=== PATIENT | female | born 1935 | race Caucasian/White ===

== ENCOUNTER 2020-01-17 17:02 | Inpatient (IN) ==
[2020-01-17] MEDS ORDERED: Isovue-370 500 ML BOTTLE IVP ONE (19:10)
[2020-01-17 19:48] LABS: Basophils % 0.5 %; Mean Corpuscular HGB Conc 31.4 g/dL (31.6-35.5); Red Cell Distribution Width 13.9 % (11.5-14.5)
[2020-01-17 19:50] LABS: Eosinophils # 0.1 K/mcL (0.0-0.6); Hematocrit 42.3 % (35.3-44.9); Hemoglobin 13.3 g/dL (11.5-15.4); Immature Granulocytes % 0.2 % (0-4); Immature Platelets 6.1 % (1.1-6.1); Lymphocytes # 1.5 K/mcL (0.6-4.6); Mean Corpuscular Hemoglobin 29.1 pg (28.0-33.3); Mean Corpuscular Volume 92.6 fL (83.0-100.0); Mean Platelet Volume 11.1 fL (9.4-12.4); Monocytes # 0.6 K/mcL (0.0-1.3); Monocytes % 8.7 %; Neutrophils # 4.3 K/mcL (1.6-8.9); Platelet Count 115 K/mcL (140-400); Red Blood Count 4.57 M/mcL (3.82-4.97); Segmented Neutrophils % 65.6 %; White Blood Count 6.6 K/mcL (4.3-11.1)
[2020-01-17 20:12] LABS: Calcium 9.3 mg/dL (8.6-10.3); Magnesium 1.8 mg/dL (1.6-2.6); Potassium 3.4 mEq/L (3.5-5.1); Troponin I 0.04 ng/mL (< 0.04)
[2020-01-17] MEDS: Aspirin 325 MG TABLET PO SCH (22:59)
[2020-01-18] MEDS ORDERED: Naloxone 0.4 MG/ML INJ IVP PRN (00:45)
[2020-01-18] MEDS ORDERED: Perflutren Lipid Microsphere 1.3 ML in 0.9 % Sodium Chloride 8.7 ML IVP PRN (00:48)
[2020-01-18] MEDS: *HR* Heparin 5,000 UNIT/ML VIAL SQ SCH ×4 (02:08→21:32)
[2020-01-18] MEDS ORDERED: Ipratropium/Albuterol Neb 3 ML IH PRN (04:00)
[2020-01-18 04:04] LABS: Hematocrit 38.3 % (35.3-44.9); Hemoglobin 12.2 g/dL (11.5-15.4); Immature Platelets 4.7 % (1.1-6.1); Mean Corpuscular HGB Conc 31.9 g/dL (31.6-35.5); Mean Corpuscular Hemoglobin 29.5 pg (28.0-33.3); Mean Corpuscular Volume 92.7 fL (83.0-100.0); Mean Platelet Volume 10.9 fL (9.4-12.4); Red Blood Count 4.13 M/mcL (3.82-4.97); Red Cell Distribution Width 13.8 % (11.5-14.5); White Blood Count 6.2 K/mcL (4.3-11.1)
[2020-01-18 04:09] LABS: INR 1.2; Prothrombin Time 14.3 Seconds (9.4-12.1)
[2020-01-18 04:12] LABS: Activated Partial Thrombo Time 29.8 Seconds (26.0-36.0)
[2020-01-18 04:20] LABS: Albumin 3.7 g/dL (3.5-5.7); Albumin/Globulin Ratio 1.8 (1.1-2.2); Bilirubin,Total 1.1 mg/dL (0.3-1.0); Calcium 8.5 mg/dL (8.6-10.3); Globulin 2.1 g/dL (2.4-3.5); Potassium 3.3 mEq/L (3.5-5.1); Total Protein 5.8 g/dL (6.4-8.9); Troponin I 0.03 ng/mL (< 0.04)
[2020-01-18 04:33] LABS: Thyroid Stimulating Hormone 1.823 mcIU/mL (0.340-5.600)
[2020-01-18] MEDS: Furosemide 40 MG/4 ML VIAL IVP SCH (09:21)
[2020-01-18] MEDS: Aspirin 325 MG TABLET PO SCH (09:21)
[2020-01-18] MEDS: lisinopriL 20 MG TABLET PO SCH (20:19)
[2020-01-19 06:22] LABS: Hemoglobin 13.1 g/dL (11.5-15.4); Mean Platelet Volume 11.1 fL (9.4-12.4); Red Blood Count 4.36 M/mcL (3.82-4.97); Red Cell Distribution Width 13.9 % (11.5-14.5); White Blood Count 3.9 K/mcL (4.3-11.1)
[2020-01-19 06:24] LABS: Platelet Count 98 K/mcL (140-400)
[2020-01-19] MEDS: *HR* Heparin 5,000 UNIT/ML VIAL SQ SCH ×3 (06:26→21:00)
[2020-01-19 06:36] LABS: BUN/Creatinine Ratio 25 (6-26); Blood Urea Nitrogen 24 mg/dL (8-23); Carbon Dioxide 27 mEq/L (23-29); Chloride 104 mEq/L (98-107); Glucose 108 mg/dL (70-105); Osmolality,Calculated 295 (280-300); Potassium 3.9 mEq/L (3.5-5.1); Sodium 140 mEq/L (136-145); eGFR For African Americans > 60 (> 60); eGFR For Non-African Americans 56 (> 60)
[2020-01-19] MEDS: Furosemide 40 MG/4 ML VIAL IVP SCH (08:27)
[2020-01-19] MEDS: lisinopriL 20 MG TABLET PO SCH ×2 (08:28→21:00)
[2020-01-19] MEDS: Aspirin Enteric Coated 81 MG Tablet PO SCH (08:29)
[2020-01-19] MEDS ORDERED: Metoprolol XL (24 HR) Succ 25 MG TAB.ER.24H PO SCH (09:00)
[2020-01-19] MEDS ORDERED: *HR* Heparin 5,000 UNIT/ML VIAL IVP PRN ×2 (23:32)
[2020-01-19] MEDS ORDERED: *HR* Heparin 5,000 UNIT/ML VIAL IVP ONE (23:32)
[2020-01-19] MEDS ORDERED: Heparin 25,000UNIT/250ML 1/2NS 25,000 UNIT/250 ML IV.SOLN IVC SCH (23:45)
[2020-01-20 06:52] LABS: Red Cell Distribution Width 13.8 % (11.5-14.5)
[2020-01-20 06:54] LABS: Hematocrit 41.7 % (35.3-44.9); Hemoglobin 13.3 g/dL (11.5-15.4); Immature Platelets 4.7 % (1.1-6.1); Mean Corpuscular HGB Conc 31.9 g/dL (31.6-35.5); Mean Corpuscular Hemoglobin 29.5 pg (28.0-33.3); Mean Corpuscular Volume 92.5 fL (83.0-100.0); Mean Platelet Volume 10.6 fL (9.4-12.4); Red Blood Count 4.51 M/mcL (3.82-4.97); White Blood Count 5.2 K/mcL (4.3-11.1)
[2020-01-20 07:23] LABS: Potassium 3.4 mEq/L (3.5-5.1)
[2020-01-20] MEDS: Furosemide 40 MG/4 ML VIAL IVP SCH (09:09)
[2020-01-20] MEDS: Cholecalciferol (D-3) 1,000 UNIT (25MCG) TABLET PO SCH (09:11)
[2020-01-20] MEDS: lisinopriL 20 MG TABLET PO SCH (09:11)
[2020-01-20] MEDS: Aspirin Enteric Coated 81 MG Tablet PO SCH (09:11)
[2020-01-20] MEDS ORDERED: 0.9 % Sodium Chloride 2,000 ML ONE (11:05)
[2020-01-20] MEDS ORDERED: *HR* Heparin 10,000 UNIT/10 ML VIAL ONE (11:05)
[2020-01-20] MEDS ORDERED: Heparin 1,000 UNITS/500 mL 500 ML ONE (11:05)
[2020-01-20] MEDS ORDERED: ISOVUE-370 200 ML INFUS..BTL ONE (11:05)
[2020-01-20] MEDS ORDERED: Nitroglycerin 1,000 MCG/10 ML VIAL IV ONE (11:05)
[2020-01-20] MEDS ORDERED: *HR* FentaNYL (PF) 100 MCG/2 ML VIAL ONE (11:15)
[2020-01-20] MEDS ORDERED: *HR* Midazolam HCl 2 MG/2 ML VIAL ONE (11:15)
[2020-01-20 16:26] LABS: Hematocrit 43.4 % (35.3-44.9)
[2020-01-20] MEDS: Ringers Solution, Lactated 250 ML IVC SCH (18:11)
[2020-01-21 03:18] LABS: Hematocrit 41.1 % (35.3-44.9); Hemoglobin 12.7 g/dL (11.5-15.4); Mean Corpuscular HGB Conc 30.9 g/dL (31.6-35.5); Mean Corpuscular Hemoglobin 29.4 pg (28.0-33.3); Mean Corpuscular Volume 95.1 fL (83.0-100.0); Mean Platelet Volume 11.2 fL (9.4-12.4); Platelet Count 106 K/mcL (140-400); Red Blood Count 4.32 M/mcL (3.82-4.97); Red Cell Distribution Width 13.6 % (11.5-14.5); White Blood Count 5.2 K/mcL (4.3-11.1)
[2020-01-21 03:33] LABS: Alanine Aminotransferase 12 Units/L (7-52); Albumin 3.5 g/dL (3.5-5.7); Albumin/Globulin Ratio 1.8 (1.1-2.2); Alkaline Phosphatase 41 Units/L (34-104); Aspartate Amino Transferase 20 Units/L (13-39); BUN/Creatinine Ratio 29 (6-26); Bilirubin,Direct 0.1 mg/dL (0.0-0.2); Bilirubin,Indirect 0.6 mg/dL (0.0-1.0); Bilirubin,Total 0.7 mg/dL (0.3-1.0); Blood Urea Nitrogen 27 mg/dL (8-23); Calcium 8.3 mg/dL (8.6-10.3); Carbon Dioxide 24 mEq/L (23-29); Chloride 101 mEq/L (98-107); Chol/HDL Ratio 3.9 (0-4.9); Cholesterol 117 mg/dL (< 200); Glucose 101 mg/dL (70-105); HDL Cholesterol 30 mg/dL (40-59); LDL Cholesterol,Calculated 58 mg/dL (< 100); Magnesium 1.9 mg/dL (1.6-2.6); Osmolality,Calculated 283 (280-300); Potassium 3.8 mEq/L (3.5-5.1); Sodium 134 mEq/L (136-145); Total Protein 5.5 g/dL (6.4-8.9); Triglycerides 143 mg/dL (< 150); eGFR For African Americans > 60 (> 60); eGFR For Non-African Americans 57 (> 60)
[2020-01-21] MEDS: Ringers Solution, Lactated 250 ML IVC SCH ×3 (05:39→09:32)
[2020-01-21] MEDS ORDERED: *HR* Heparin 5,000 UNIT/ML VIAL SQ SCH (06:00)
[2020-01-21] MEDS ORDERED: Furosemide 40 MG TABLET PO SCH (09:00)
[2020-01-21] MEDS ORDERED: Metoprolol XL (24 HR) Succ 25 MG TAB.ER.24H PO SCH (09:00)
[2020-01-21] MEDS ORDERED: lisinopriL 5 MG TABLET PO SCH (09:00)
[2020-01-21] MEDS: Cholecalciferol (D-3) 1,000 UNIT (25MCG) TABLET PO SCH (09:38)
[2020-01-21] MEDS: Aspirin Enteric Coated 81 MG Tablet PO SCH (09:40)
[2020-01-21 10:13] LABS: Estimated Average Glucose 151 mg/dl; Hemoglobin A1C 6.9 %
[2020-01-21 14:05] VITALS: BP 110/72
== END 2020-01-22 00:58 | disposition short-term general hospital (02) | DRG 280 ==
LOC: EMEROOARM 17:02 → 3ANU 17:02 → SUATTDRO 22:32 → 3ANU 23:05
PROVIDERS: ADMIT Student in an Organized Health Care Education/Training Program; ATTEND Internal Medicine